=== PATIENT | male | born 1965 | race Caucasian/White ===

== ENCOUNTER 2022-10-30 06:41 | Emergency (ER) | payer MEDICAID ==
[~2022-10-30] VITALS: Ht 172.7 cm; Wt 107.3 kg
[2022-10-30 07:31] VITALS: BP 107/61
[2022-10-30] MEDS ORDERED: TETANUS-DIPTH-ACEL PERTUSSIS 0.5ML SYR Tdap IM ONE (08:00)
[2022-10-30] MEDS ORDERED: LIDOCAINE 1% HCL (LOCAL ANESTH.) INJ 20ML MDV ID ONE (08:00)
[2022-10-30] MEDS ORDERED: CEPH-510 PO (08:52)
[2022-10-30] MEDS ORDERED: MAX35OO TOP (08:52)
== END 2022-10-30 08:53 | disposition home or self-care (01) ==
LOC: ER 06:41
DX: S01.01XA Laceration without foreign body of scalp, initial encounter (principal); S06.0X0A Concussion without loss of consciousness, initial encounter; E66.01 Morbid (severe) obesity due to excess calories; Z68.36 Body mass index [BMI] 36.0-36.9, adult; W18.09XA Striking against other object with subsequent fall, initial encounter; Y93.89 Activity, other specified; Y92.488 Other paved roadways as the place of occurrence of the external cause; Y99.8 Other external cause status
CPT/HCPCS: 12004; 70450; 90471; 90715; 99285; J2001